=== PATIENT | female | born 1980 | race Two or more races ===

== ENCOUNTER 2025-08-10 13:38 | Outpatient (CLI) | payer OTHER ==
[~2025-08-10 13:38] MED LIST: ESTAZOLAM1 MG PO
== END 2025-08-10 13:41 | disposition home or self-care (01) ==
LOC: SONOGRAMA 13:38
PROVIDERS: ATTEND Pathology Anatomic Pathology & Clinical Pathology
DX: D34 Benign neoplasm of thyroid gland (principal); E07.89 Other specified disorders of thyroid; E04.8 Other specified nontoxic goiter